=== PATIENT | male | born 1945 | race Caucasian/White ===

== ENCOUNTER 2020-06-25 09:44 | Day surgery (SDC) | payer OTHER ==
[~2020-06-25] VITALS: Ht 170.2 cm; Wt 94.3 kg
[~2020-06-25 09:44] MED LIST: BENHYD1012 PO; CORGARD PO
== END 2020-06-25 12:10 | disposition home or self-care (01) ==
LOC: ORSCSDS 09:44
PROVIDERS: Internal Medicine Gastroenterology
PROC: 0DBK8ZX Excision of Ascending Colon, Via Natural or Artificial Opening Endoscopic, Diagnostic (ICD-10-PCS; principal; 2020-06-25 11:00)
DX: Z12.11 Encounter for screening for malignant neoplasm of colon (principal); Z86.010 Personal history of colon polyps; D12.2 Benign neoplasm of ascending colon; K62.89 Other specified diseases of anus and rectum; K64.8 Other hemorrhoids; I10 Essential (primary) hypertension; K57.30 Diverticulosis of large intestine without perforation or abscess without bleeding; Z79.899 Other long term (current) drug therapy
CPT/HCPCS: 88305; J2704; J7120

== ENCOUNTER 2021-05-14 07:07 | Day surgery (SDC) | payer OTHER ==
[~2021-05-14] VITALS: Ht 170.2 cm; Wt 93.6 kg
--- NOTE | 2021-05-14 07:38 | NUR ---
05/14/21 0738 VANESSA GERBER TETRACAINE DROP INSTILLED AT 0735. PLEDGETT INSERTED AT 0737
== END 2021-05-14 09:18 | disposition home or self-care (01) ==
LOC: ORSCSDS 07:07
PROVIDERS: Ophthalmology
PROC: 08RJ3JZ Replacement of Right Lens with Synthetic Substitute, Percutaneous Approach (ICD-10-PCS; principal; 2021-05-14 08:30)
DX: H25.13 Age-related nuclear cataract, bilateral (principal); I10 Essential (primary) hypertension; Z79.899 Other long term (current) drug therapy; E66.9 Obesity, unspecified; Z68.32 Body mass index [BMI] 32.0-32.9, adult
CPT/HCPCS: J2001; J2250; J3010; J3301; J7040; V2632

== ENCOUNTER 2021-07-09 07:00 | Day surgery (SDC) | payer OTHER ==
[~2021-07-09] VITALS: Ht 170.2 cm; Wt 93.6 kg
--- NOTE | 2021-07-09 09:21 | NUR ---
07/09/21 0921 FRED ZIEGLER PT SBA TO DC HOME WITH SAUL
== END 2021-07-09 09:11 | disposition home or self-care (01) ==
LOC: ORSCSDS 07:00
PROVIDERS: Ophthalmology
PROC: 08RK3JZ Replacement of Left Lens with Synthetic Substitute, Percutaneous Approach (ICD-10-PCS; principal; 2021-07-09 08:30)
DX: H25.12 Age-related nuclear cataract, left eye (principal); I10 Essential (primary) hypertension; Z79.899 Other long term (current) drug therapy
CPT/HCPCS: J2001; J2250; J3010; J3301; J7040; V2632